=== PATIENT | female | born 1995 | race African-American/Black ===

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

== ENCOUNTER 2017-07-06 04:05 | Emergency (ER) | payer MEDICAID, MEDICARE ==
[~2017-07-06] VITALS: Ht 172.7 cm; Wt 66.0 kg
[2017-07-06 04:07] VITALS: BP 138/80
== END 2017-07-06 07:33 | disposition left against medical advice (07) ==
LOC: ER 04:14
DX: S61.412A Laceration without foreign body of left hand, initial encounter (principal); Z53.21 Procedure and treatment not carried out due to patient leaving prior to being seen by health care provider; X58.XXXA Exposure to other specified factors, initial encounter; Y93.89 Activity, other specified; Y92.89 Other specified places as the place of occurrence of the external cause; Y99.8 Other external cause status

== ENCOUNTER 2021-07-13 19:42 | Emergency (ER) | payer MEDICAID ==
[~2021-07-13] VITALS: Ht 162.6 cm; Wt 66.0 kg
[2021-07-13 19:45] VITALS: BP 119/72
[2021-07-13] MEDS ORDERED: ACETAMINOPHEN 325MG TABLET PO ONE (21:15)
== END 2021-07-13 23:37 | disposition home or self-care (01) ==
LOC: ER 19:42
DX: S06.0X0A Concussion without loss of consciousness, initial encounter (principal); R51.9 Headache, unspecified; Y08.89XA Assault by other specified means, initial encounter; Y93.89 Activity, other specified; Y92.89 Other specified places as the place of occurrence of the external cause; Y99.8 Other external cause status; F12.10 Cannabis abuse, uncomplicated
CPT/HCPCS: 99281